=== PATIENT | male | born 1995 | race Caucasian/White ===

== ENCOUNTER 2018-06-04 16:07 | Emergency (ER) | payer OTHER ==
[~2018-06-04] VITALS: Ht 172.7 cm; Wt 88.2 kg
[2018-06-04 16:11] VITALS: BP 139/95; TEMP 98.2
[2018-06-04] MEDS ORDERED: ADDERALL XR30 MG PO (16:40)
[2018-06-04] MEDS ORDERED: LUVOX25 MG PO (16:41)
[2018-06-04 18:00] VITALS: PULSE 98
== END 2018-06-04 18:02 | disposition home or self-care (01) ==
LOC: COL.ER 16:07
DX: S05.01XA Injury of conjunctiva and corneal abrasion without foreign body, right eye, initial encounter (principal); X58.XXXD Exposure to other specified factors, subsequent encounter